=== PATIENT | male | born 1960 | race American Indian/Alaskan Native ===

== ENCOUNTER 2018-10-06 13:45 | Outpatient (CLI) | payer OTHER ==
--- NOTE | 2018-10-06 15:03 | XRay Report ---
. LEFT HIP 3 VIEW(S) INDICATION / CLINICAL INFORMATION: PAIN IN LEFT HIP COMPARISON: None available. FINDINGS: BONES / JOINT(S): No acute fracture or subluxation. Moderate right and extensive left hip degenerativ e arthrosis. SOFT TISSUES: No significant abnormality. ADDITIONAL FINDINGS: None. Signer Name: Lionel Kevin MD Signed: 10/06/2018 1:59 PM Workstation Name: [id number]
== END 2018-10-06 13:46 | disposition home or self-care (01) ==
LOC: XRAY 13:45
PROVIDERS: ATTEND Orthopaedic Surgery
DX: M16.12 Unilateral primary osteoarthritis, left hip (principal)

== ENCOUNTER 2019-03-09 09:39 | Outpatient (CLI) | payer OTHER ==
--- NOTE | 2019-03-09 10:49 | XRay Report ---
LEFT HIP, 2 VIEWS INDICATION: M16.12 UNILATERAL PRIMARY OSTEOARTHRITIS LEFT HIP. COMPARISON: 12/27/2018 IMPRESSION: The left hip prosthesis is unchanged in position and alignment since the comparison exam . No evidence for fracture, infection or loosening. Mild heterotopic bone formation laterally is note d. The pelvic bones are intact. Mild to moderate osteoarthritic changes are identified at the right hip and SI joints. Signer Name: Eze Carter Jr, MD Signed: 03/09/2019 10:44 AM Workstation Name: [id number]
== END 2019-03-09 09:40 | disposition home or self-care (01) ==
LOC: XRAY 09:39
PROVIDERS: ATTEND Orthopaedic Surgery
DX: M16.12 Unilateral primary osteoarthritis, left hip (principal); Z96.642 Presence of left artificial hip joint